=== PATIENT | female | born 1970 | race Caucasian/White ===

== ENCOUNTER → 2016-08-03 | Outpatient (CLI) | payer OTHER ==
--- NOTE | 2016-08-03 10:19 | REPMRS ---
Patient History The patient states she had a clinical breast exam in 07/2016. Patient had first child at age 32. Family history of breast cancer in maternal aunt at age 50 or over and colorectal cancer in maternal uncle at age 50 or over. Benign stereotatic breast biopsy of the right breast, October 21, 2007. Digital Woman Screen Mammo: August 03, 2016 - Exam #: [id number] Bilateral CC and MLO view(s) were taken. Technologist: Steffanie Luis, Technologist Prior study comparison: August 02, 2015, digital woman screen mammo performed at [facility]. July 31, 2014, digital woman screen mammo performed at [facility]. July 31, 2013, digital woman screen mammo performed at [facility]. FINDINGS: There are scattered fibroglandular densities. There has been no change in the appearance of the mammogram from the prior studies. No change in the size or appearance of the well circumscribed mass in the upper outer quadrant of the right breast since of multiple prior mammography. There is a needle biopsy marker clip along the anterior to this mass as before. There is a mild amount of scattered fibroglandular density which is fairly symmetric. There is no interval development of dominant mass, architectural distortion, or clustered microcalcification suggestive of malignancy. ASSESSMENT: BI-RADS/ACR category 2 mammogram. Benign finding(s). Recommendation Routine screening mammogram in 1 year (for women over age 40). This mammogram was interpreted with the aid of an FDA-approved computer-aided dectection system. Electronically Signed By: Edson Jay MD 08/03/16 [id number]
== END ==
LOC: M WHC 09:21
PROVIDERS: ATTEND Nurse Practitioner Family
DX: Z12.31 Encounter for screening mammogram for malignant neoplasm of breast (principal)

== ENCOUNTER → 2016-09-20 | Outpatient (CLI) | payer OTHER ==
[2016-09-20 10:15] LABS: ALBUMIN 3.7 GM/DL (3.2-5.2); ALBUMIN/GLOBULIN RATIO 1.16 (1.00-1.93); ALKALINE PHOSPHATASE 51 U/L (45-117); ALT/SGPT 27 U/L (12-78); ANION GAP 9 MEQ/L (8-16); AST/SGOT 22 U/L (15-37); BILIRUBIN,TOTAL 0.3 MG/DL (0.2-1.0); BLOOD UREA NITROGEN 11 MG/DL (7-18); CALCIUM LEVEL 8.8 MG/DL (8.5-10.1); CARBON DIOXIDE LEVEL 28 MEQ/L (21-32); CHLORIDE LEVEL 105 MEQ/L (98-107); CHOLESTEROL LEVEL 134 MG/DL (<200); CREATININE FOR GFR 0.91 MG/DL (0.55-1.02); GLOMERULAR FILTRATION RATE > 60.0 (>58); GLUCOSE, FASTING 94 MG/DL (70-105); POTASSIUM SERUM 4.6 MEQ/L (3.5-5.1); SODIUM LEVEL 142 MEQ/L (136-145); TOTAL PROTEIN 6.9 GM/DL (6.4-8.2); TRIGLYCERIDES LEVEL 61 MG/DL (<150)
== END ==
LOC: M WUC 08:30
PROVIDERS: ATTEND Family Medicine
DX: R10.9 Unspecified abdominal pain (principal); Z83.49 Family history of other endocrine, nutritional and metabolic diseases

== ENCOUNTER → 2017-08-06 | Outpatient (CLI) | payer OTHER | LOC: M WHC 09:31 | DX: Z12.31 Encounter for screening mammogram for malignant neoplasm of breast (principal) | CPT/HCPCS: 77067 ==

== ENCOUNTER → 2018-08-07 | Outpatient (CLI) | payer OTHER ==
--- NOTE | 2018-08-07 09:25 | REPMRS ---
Patient History The patient states she had a clinical breast exam in 07/2018. Patient had first child at age 32. Family history of colorectal cancer at age 55 in maternal uncle, breast cancer at age 50 or over in maternal aunt. Benign stereotatic breast biopsy of the right breast, October 21, 2007. Digital Woman Screen Mammo: August 07, 2018 - Exam #: [id number] Bilateral CC and MLO view(s) were taken. Technologist: Steffanie Luis Technologist Prior study comparison: August 06, 2017, digital woman screen mammo performed at [email or web address]. August 03, 2016, digital woman screen mammo performed at [email or web address]. August 02, 2015, digital woman screen mammo performed at [email or web address]. FINDINGS: There are scattered fibroglandular densities. There is a needle biopsy marker clip along the anterior edge of a stable right breast nodule unchanged from multiple comparison studies. There are other smaller stable nodules visualized on the right breast as well. There has been no change in the appearance of the mammogram from the prior studies. There is a mild amount of scattered fibroglandular density which is fairly symmetric. There is no interval development of dominant mass, architectural distortion, or clustered microcalcification suggestive of malignancy. 3-D tomosynthesis shows no additional findings. Assessment: BI-RADS/ACR category 2 mammogram. Benign Findings. Recommendation Routine screening mammogram of both breasts in 1 year (for women over age 40). This patient's Lifetime Breast Cancer RIsk is estimated at 18.0 %. This mammogram was interpreted with the aid of an FDA-approved computer-aided dectection system. Electronically Signed By: Edson Jay MD 08/07/18 [id number]
== END ==
LOC: M WHC 07:53
PROVIDERS: ATTEND Nurse Practitioner Family
DX: Z12.31 Encounter for screening mammogram for malignant neoplasm of breast (principal)

== ENCOUNTER → 2018-08-07 | Outpatient (REF) | payer OTHER ==
[2018-08-09 14:42] LABS: HPV HYBRID CAPTURE II Negative (Negative)
== END ==
LOC: M SFHCWAGY 08:21
PROVIDERS: ATTEND Nurse Practitioner Family
DX: Z12.4 Encounter for screening for malignant neoplasm of cervix (principal)
CPT/HCPCS: 87624; G0123

== ENCOUNTER → 2018-11-15 | Outpatient (CLI) | payer OTHER ==
[~2018-11-15] MED LIST: E-Z-GAS II EFFERVESCENT PACKET (SODIUM BICARB./CITRIC ACID/SIMETHICONE) As Ordered ONE; E-Z-HD 98% w/w 340GM SUSP BTL As Ordered ONE; E-Z-PAQUE 96% w/w SUSP 176GM BTL As Ordered ONE
--- NOTE | 2018-11-16 14:59 | REP ---
Esophagram The procedure was performed under the direct supervision of Dr. Harp. The images were reviewed with Dr. Harp. A single view PA chest x-ray is submitted as a invoice control clerk film. The superior mediastinal structures are midline. The heart size is within normal limits. The lungs are clear. Liquid barium and gas producing granules were given in the erect position as well as liquid barium in the prone oblique positions in order to perform a double contrast esophagram examination. The oral and pharyngeal stages of deglutition are unremarkable. Esophageal transport is prompt and efficient. In the mid esophagus there is some slight mucosal irregularity which may represent early esophagitis. There is no pamela ulcer identified. At the GE junction there are some barium collections which is consistent with esophageal intramural pseudo diverticulosis. Impression: 1. In the mid esophagus there is some slight mucosal irregularity which may represent early esophagitis. There is no pamela ulcer identified. 2. At the GE junction there are some barium collections which is consistent with esophageal intramural pseudo diverticulosis. 0.9 minutes of fluoro time was utilized for this procedure. Reviewed by ARGENIS Watkins 11/15/2018 04:28 P Electronically Signed by Liban Harp MD 11/16/2018 02:50 P
== END ==
LOC: M RAD 09:43
PROVIDERS: ATTEND Physician Assistant Medical
DX: R13.10 Dysphagia, unspecified (principal)

== ENCOUNTER 2018-12-06 11:41 | Day surgery (SDC) | payer OTHER ==
[~2018-12-06] VITALS: Ht 157.5 cm; Wt 66.2 kg
[~2018-12-06 11:41] MED LIST changes: -E-Z-GAS II EFFERVESCENT PACKET (SODIUM BICARB./CITRIC ACID/SIMETHICONE) As Ordered ONE; -E-Z-HD 98% w/w 340GM SUSP BTL As Ordered ONE; -E-Z-PAQUE 96% w/w SUSP 176GM BTL As Ordered ONE; +EXCETAB33 PO; +FLON1SPR
[2018-12-06] MEDS ORDERED: LIDOCAINE 2% INJ 100 MG/5 ML SDV (FOR ANES.) As Ordered ONE (14:23)
[2018-12-06] MEDS ORDERED: PROPOFOL 200 MG/20 ML VIAL As Ordered ONE ×2 (14:23→14:36)
--- NOTE | 2018-12-06 15:05 | ROOR ---
Patient Name: Samreen Balderas Procedure Date: 12/06/2018 2:04 PM Date of : 1970 Age: 48 Room: [facility] Gender: Female Note Status: Finalized Procedure: Upper GI endoscopy Indications: Dysphagia Providers: Tomasz Pizarro MD Referring MD: Starr Reeves MD Requesting Provider: Medicines: Monitored Anesthesia Care Complications: No immediate complications. Procedure: Pre-Anesthesia Assessment: - Prior to the procedure, a History and Physical was performed, and patient medications and allergies were reviewed. The patient is competent. The risks and benefits of the procedure and the sedation options and risks were discussed with the patient. All questions were answered and informed consent was obtained. Patient identification and proposed procedure were verified by the physician, the nurse and the anesthesiologist in the procedure room. Mental Status Examination: alert and oriented. Airway Examination: normal oropharyngeal airway and neck mobility. Respiratory Examination: clear to auscultation. CV Examination: normal. Prophylactic Antibiotics: The patient does not require prophylactic antibiotics. Prior Anticoagulants: The patient has taken no previous anticoagulant or antiplatelet agents. ASA Grade Assessment: II - A patient with mild systemic disease. After reviewing the risks and benefits, the patient was deemed in satisfactory condition to undergo the procedure. The anesthesia plan was to use monitored anesthesia care (MAC). Immediately prior to administration of medications, the patient was re-assessed for adequacy to receive sedatives. The heart rate, respiratory rate, oxygen saturations, blood pressure, adequacy of pulmonary ventilation, and response to care were monitored throughout the procedure. The physical status of the patient was re-assessed after the procedure. The Endoscope was introduced through the mouth, and advanced to the second part of duodenum. The upper GI endoscopy was accomplished without difficulty. The patient tolerated the procedure well. Findings: Mucosal changes including ringed esophagus, feline appearance, longitudinal furrows, white plaques and stenosis were found in the entire esophagus. Esophageal findings were graded using the Eosinophilic Esophagitis Endoscopic Reference Score (EoE-EREFS) as: Edema Grade 1 Present (decreased clarity or absence of vascular markings), Rings Grade 2 Moderate (distinct rings that do not occlude passage of diagnostic 8-10 mm endoscope), Exudates Grade 1 Mild (scattered white lesions involving less than 10 percent of the esophageal surface area), Furrows Grade 1 Present (vertical lines with or without visible depth) and Stricture present. Biopsies were obtained from the proximal and distal esophagus with cold forceps for histology of suspected eosinophilic esophagitis. Verification of patient identification for the specimen was done by the physician and nurse using the patient's name, date and medical record number. Estimated blood loss was minimal. One benign-appearing, intrinsic severe (stenosis; an endoscope cannot pass) stenosis was found in the distal esophagus. This stenosis measured 8 mm (inner diameter). The stenosis was traversed after dilation. A TTS dilator was passed through the scope. Dilation with a 10-11-12 mm balloon dilator was performed to 12 mm. The dilation site was examined following endoscope reinsertion and showed mild mucosal disruption, moderate improvement in luminal narrowing, no mucosal tear and no perforation. One non-bleeding cratered gastric ulcer with a clean ulcer base (Bishop Class III) was found in the gastric antrum. The lesion was 15 mm in largest dimension. Biopsies were taken with a cold forceps for histology. Diffuse mild inflammation characterized by erythema and granularity was found in the gastric antrum. Biopsies were taken with a cold forceps for Helicobacter pylori testing. The duodenal bulb and second portion of the duodenum were normal. Impression: - Esophageal mucosal changes consistent with eosinophilic esophagitis. Biopsied. - Benign-appearing esophageal stenosis. Dilated. - Non-bleeding gastric ulcer with a clean ulcer base (Bishop Class III). Biopsied. - Gastritis. Biopsied. - Normal duodenal bulb and second portion of the duodenum. Recommendation: - Patient has a contact number available for emergencies. The signs and symptoms of potential delayed complications were discussed with the patient. Return to normal activities tomorrow. Written discharge instructions were provided to the patient. - Mechanical soft diet. - Avoid the six foods - milk, egg, soy, wheat, peanuts/tree nuts, fish/shellfish. for 6 weeks. - Follow an antireflux regimen. - Use Protonix (pantoprazole) 40 mg PO twice daily - to be taken in morning (1/2 hour before breakfast) and at bedtime ( atleast 3 hours after last meal) for 3 months. - Await pathology results. - Repeat upper endoscopy in 3 months to evaluate the response to therapy. - Return to GI office in [facility] (address [address], [place] [address]) in 4 -- 6 weeks. Please call GI clinic @ [phone] for apppointment date and time. - Telephone GI clinic for pathology results in 2 weeks. - Return to primary care physician. Tomasz Pizarro MD Tomasz Pizarro MD 12/06/2018 3:05:10 PM Electronically signed by Tomasz Pizarro MD Number of Addenda: 0 Note Initiated On: 12/06/2018 2:04 PM Estimated Blood Loss: Estimated blood loss was minimal.
--- NOTE | 2018-12-06 15:07 | ROOR ---
Patient Name: Samreen Balderas Procedure Date: 12/06/2018 2:06 PM Date of : 1970 Age: 48 Room: [facility] Gender: Female Note Status: Finalized Procedure: Colonoscopy Indications: Screening for colorectal malignant neoplasm Providers: Tomasz Pizarro MD Referring MD: Starr Reeves MD Requesting Provider: Medicines: Monitored Anesthesia Care Complications: No immediate complications. Procedure: Pre-Anesthesia Assessment: - Prior to the procedure, a History and Physical was performed, and patient medications and allergies were reviewed. The patient is competent. The risks and benefits of the procedure and the sedation options and risks were discussed with the patient. All questions were answered and informed consent was obtained. Patient identification and proposed procedure were verified by the physician, the nurse and the anesthesiologist in the procedure room. Mental Status Examination: alert and oriented. Airway Examination: normal oropharyngeal airway and neck mobility. Respiratory Examination: clear to auscultation. CV Examination: normal. Prophylactic Antibiotics: The patient does not require prophylactic antibiotics. Prior Anticoagulants: The patient has taken no previous anticoagulant or antiplatelet agents. ASA Grade Assessment: II - A patient with mild systemic disease. After reviewing the risks and benefits, the patient was deemed in satisfactory condition to undergo the procedure. The anesthesia plan was to use monitored anesthesia care (MAC). Immediately prior to administration of medications, the patient was re-assessed for adequacy to receive sedatives. The heart rate, respiratory rate, oxygen saturations, blood pressure, adequacy of pulmonary ventilation, and response to care were monitored throughout the procedure. The physical status of the patient was re-assessed after the procedure. The Colonoscope was introduced through the anus and advanced to the terminal ileum, with identification of the appendiceal orifice and IC valve. The colonoscopy was performed without difficulty. The patient tolerated the procedure well. The quality of the bowel preparation was good. The terminal ileum, ileocecal valve, appendiceal orifice, and rectum were photographed. Scope insertion time was 3 minutes. Scope withdrawal time was 9 minutes. The total duration of the procedure was 12 minutes. Findings: The perianal and digital rectal examinations were normal. The terminal ileum appeared normal. Non-bleeding external and internal hemorrhoids were found during retroflexion. The hemorrhoids were small. No other significant abnormalities were identified in a careful examination of the remainder of the colon. Impression: - The examined portion of the ileum was normal. - Non-bleeding external and internal hemorrhoids. - No specimens collected. Recommendation: - Patient has a contact number available for emergencies. The signs and symptoms of potential delayed complications were discussed with the patient. Return to normal activities tomorrow. Written discharge instructions were provided to the patient. - Resume previous diet. - Continue present medications. - Repeat colonoscopy in 10 years for screening purposes. - Return to GI clinic in [facility] (address [address], [address] [address]) in 4 -- 6 weeks. Please call GI clinic @ [phone] for apppointment date and time. - Return to primary care physician. Tomasz Pizarro MD Tomasz Pizarro MD 12/06/2018 3:06:48 PM Electronically signed by Tomasz Pizarro MD Number of Addenda: 0 Note Initiated On: 12/06/2018 2:06 PM Estimated Blood Loss: Estimated blood loss: none.
[2018-12-06 15:23] VITALS: BP 153/72
== END 2018-12-06 15:29 | disposition home or self-care (01) ==
LOC: M OPP 11:41
PROVIDERS: ATTEND Internal Medicine Gastroenterology
DX: K64.8 Other hemorrhoids (principal); R13.10 Dysphagia, unspecified; K21.0 Gastro-esophageal reflux disease with esophagitis; K22.2 Esophageal obstruction; K29.70 Gastritis, unspecified, without bleeding; K25.9 Gastric ulcer, unspecified as acute or chronic, without hemorrhage or perforation; Z12.11 Encounter for screening for malignant neoplasm of colon

== ENCOUNTER 2019-02-21 11:56 | Day surgery (SDC) | payer OTHER ==
[~2019-02-21] VITALS: Ht 157.5 cm; Wt 63.9 kg
[~2019-02-21 11:56] MED LIST changes: +NS 1,000 ML IV ONE; +PROTPAK PO
[2019-02-21] MEDS ORDERED: LIDOCAINE 2% INJ 100 MG/5 ML SDV (FOR ANES.) As Ordered ONE (13:00)
[2019-02-21] MEDS ORDERED: PROPOFOL 200 MG/20 ML VIAL As Ordered ONE ×2 (13:00→14:03)
[2019-02-21] MEDS ORDERED: ONDANSETRON 4MG/2ML VIAL (J2405) As Ordered ONE (14:45)
--- NOTE | 2019-02-21 14:57 | ROOR ---
Patient Name: Samreen Balderas Procedure Date: 02/21/2019 1:45 PM Date of : 1970 Age: 48 Room: [facility] Gender: Female Note Status: Finalized Procedure: Upper GI endoscopy Indications: Dysphagia, Follow-up of gastric ulcer Providers: Tomasz Pizarro MD Referring MD: Starr Reeves MD Requesting Provider: Medicines: Monitored Anesthesia Care Complications: No immediate complications. Procedure: Pre-Anesthesia Assessment: - Prior to the procedure, a History and Physical was performed, and patient medications and allergies were reviewed. The patient is competent. The risks and benefits of the procedure and the sedation options and risks were discussed with the patient. All questions were answered and informed consent was obtained. Patient identification and proposed procedure were verified by the physician, the nurse and the anesthesiologist in the procedure room. Mental Status Examination: alert and oriented. Airway Examination: normal oropharyngeal airway and neck mobility. Respiratory Examination: clear to auscultation. CV Examination: normal. Prophylactic Antibiotics: The patient does not require prophylactic antibiotics. Prior Anticoagulants: The patient has taken no previous anticoagulant or antiplatelet agents. ASA Grade Assessment: II - A patient with mild systemic disease. After reviewing the risks and benefits, the patient was deemed in satisfactory condition to undergo the procedure. The anesthesia plan was to use monitored anesthesia care (MAC). Immediately prior to administration of medications, the patient was re-assessed for adequacy to receive sedatives. The heart rate, respiratory rate, oxygen saturations, blood pressure, adequacy of pulmonary ventilation, and response to care were monitored throughout the procedure. The physical status of the patient was re-assessed after the procedure. The Endoscope was introduced through the mouth, and advanced to the second part of duodenum. The upper GI endoscopy was accomplished without difficulty. The patient tolerated the procedure well. Findings: LA Grade A (one or more mucosal breaks less than 5 mm, not extending between tops of 2 mucosal folds) esophagitis with no bleeding was found in the distal esophagus. Biopsies were taken with a cold forceps for histology. Verification of patient identification for the specimen was done by the physician and nurse using the patient's name, date and medical record number. Estimated blood loss was minimal. Normal mucosa was found in the upper third of the esophagus, in the middle third of the esophagus and in the lower third of the esophagus. Biopsies were obtained from the proximal and distal esophagus with cold forceps for histology of suspected eosinophilic esophagitis. Localized moderate inflammation characterized by congestion (edema), erythema, friability and granularity was found in the gastric antrum. Three biopsies were obtained with cold forceps for histology in the gastric antrum, as well as two biopsies in the gastric body. A moderate extrinsic deformity was found in the duodenal bulb. The second portion of the duodenum was normal. Impression: - LA Grade A reflux esophagitis. Rule out Dowell's esophagus. Biopsied. - Normal mucosa was found in the upper third of the esophagus, in the middle third of the esophagus and in the lower third of the esophagus. Biopsied. - Gastritis. - Duodenal deformity. - Normal second portion of the duodenum. - Biopsies performed in the gastric antrum and in the gastric body. Recommendation: - Patient has a contact number available for emergencies. The signs and symptoms of potential delayed complications were discussed with the patient. Return to normal activities tomorrow. Written discharge instructions were provided to the patient. - Resume previous diet. - Continue present medications. - Await pathology results. - Perform CT scan (computed tomography) of the abdomen with contrast depending on symptoms to evaluate for extrinsic compression on duodenum area. - Telephone GI clinic for pathology results in 2 weeks. - Return to primary care physician. Tomasz Pizarro MD Tomasz Pizarro MD 02/21/2019 2:56:43 PM Electronically signed by Tomasz Pizarro MD Number of Addenda: 0 Note Initiated On: 02/21/2019 1:45 PM Estimated Blood Loss: Estimated blood loss was minimal.
[2019-02-21] MEDS ORDERED: ONDANSETRON 4MG/2ML VIAL (J2405) IV ONE (15:00)
[2019-02-21 15:02] VITALS: BP 142/69
== END 2019-02-21 15:27 | disposition home or self-care (01) ==
LOC: M OPP 11:56
PROVIDERS: ATTEND Internal Medicine Gastroenterology
DX: K25.9 Gastric ulcer, unspecified as acute or chronic, without hemorrhage or perforation (principal); R13.10 Dysphagia, unspecified; K21.0 Gastro-esophageal reflux disease with esophagitis; K31.89 Other diseases of stomach and duodenum; K29.70 Gastritis, unspecified, without bleeding; G43.909 Migraine, unspecified, not intractable, without status migrainosus; Z88.5 Allergy status to narcotic agent; Z79.899 Other long term (current) drug therapy
CPT/HCPCS: 43239; 88305; J2405

== ENCOUNTER → 2019-04-11 | Outpatient (CLI) | payer OTHER ==
[~2019-04-11] MED LIST changes: -NS 1,000 ML IV ONE
--- NOTE | 2019-04-11 11:51 | REP ---
Complete abdominal ultrasound for gastric ulcer with extrinsic pressure on the duodenum. Comparison is the abdomen/pelvis CT dated 10/31/2011. There is no cholelithiasis, gallbladder wall thickening or pericholecystic fluid. There is no intrahepatic or extrahepatic biliary duct dilatation. The common biliary duct measures 2.9 mm in diameter. The hepatic parenchyma is homogeneous. The liver is normal size measuring 15.0 cm craniocaudad in the midclavicular line. The visualized areas of the pancreas are unremarkable. No pancreatic head mass is identified by ultrasound. The spleen is normal size measuring 9.9 x 9.6 x 3.8 cm. There is a splenic cyst measuring 2.5 x 1.8 x 2.1 cm. This was not present on the comparison CT. The kidneys are normal size. Right kidney measures 10.1 x 4 point and a 3.9 cm. The left kidney measures 10.1 x 4.6 x 4.6 cm. There are no solid or cystic renal masses masses. There are no renal calculi. The There is no right renal hydronephrosis. There appear to be dilated calyces in the left renal upper pole. This was not present on the comparison CT and is of uncertain significance. This may represent parapelvic renal cysts. CT might be considered for further evaluation. There is no abdominal aortic aneurysm. The proximal aorta measures 2.0 cm diameter. The mid aorta measures 1.6 cm diameter. The distal aorta measures 1.2 cm diameter per There is no abdominal ascites. Impression: No pancreatic head mass is identified by ultrasound. There is a 2.5 cm splenic cyst. There appear to be dilated calyces in the left renal upper pole. This is of uncertain significance but is a change from the comparison CT. This may represent parapelvic renal cysts. Follow-up CT might be considered. Electronically Signed by Liban Toledo MD 04/11/2019 11:42 A
== END ==
LOC: M RAD 07:39
PROVIDERS: ATTEND Internal Medicine Gastroenterology
DX: K25.9 Gastric ulcer, unspecified as acute or chronic, without hemorrhage or perforation (principal); R13.10 Dysphagia, unspecified

== ENCOUNTER → 2019-04-25 | Outpatient (REF) | payer OTHER ==
[2019-04-25 12:02] LABS: BASO # 0.1 10^3/uL (0.0-0.2); BASO % 1.5 % (0.0-1.0); EOS # 0.2 10^3/uL (0.0-0.5); EOS % 4.2 % (0.0-3.0); HEMATOCRIT 43.8 % (36.0-47.0); LYMPH # 1.1 10^3/uL (1.5-5.0); LYMPH % 24.1 % (24.0-44.0); MEAN CORPUSCULAR HEMOGLOBIN 32.8 pg (27.0-33.0); MEAN CORPUSCULAR HGB CONC 34.2 g/dl (32.0-36.5); MEAN CORPUSCULAR VOLUME 95.8 fl (80.0-96.0); MONO # 0.4 10^3/uL (0.0-0.8); MONO % 7.7 % (0.0-5.0); NEUTROPHILS # 2.8 10^3/uL (1.5-8.5); NEUTROPHILS % 61.6 % (36.0-66.0); PLATELET COUNT, AUTOMATED 309 10^3/uL (150-450); RED BLOOD COUNT 4.57 10^6/uL (4.00-5.40); WHITE BLOOD COUNT 4.6 10^3/uL (4.0-10.0)
[2019-04-25 12:35] LABS: ALBUMIN 3.6 GM/DL (3.2-5.2); ALT/SGPT 32 U/L (12-78); BILIRUBIN,TOTAL 0.3 MG/DL (0.2-1.0); BLOOD UREA NITROGEN 11 MG/DL (7-18); CALCIUM LEVEL 9.5 MG/DL (8.5-10.1); CARBON DIOXIDE LEVEL 28 MEQ/L (21-32); CHLORIDE LEVEL 106 MEQ/L (98-107); CREATININE FOR GFR 0.95 MG/DL (0.55-1.30); GLOMERULAR FILTRATION RATE > 60.0 (>51); GLUCOSE, FASTING 104 MG/DL (70-100); POTASSIUM SERUM 4.4 MEQ/L (3.5-5.1); SODIUM LEVEL 140 MEQ/L (136-145); TOTAL PROTEIN 7.2 GM/DL (6.4-8.2)
== END ==
LOC: M SFHCPLAZ 10:49
PROVIDERS: ATTEND Family Medicine
DX: D73.4 Cyst of spleen (principal); N28.89 Other specified disorders of kidney and ureter

== ENCOUNTER → 2019-05-01 | Outpatient (CLI) | payer OTHER ==
[~2019-05-01] MED LIST changes: +GASTROGRAFIN SOLUTION 30ML (Q9963) As Ordered ONE; +ISOVUE-370 76% 100ML VIAL (Q9967) As Ordered ONE
--- NOTE | 2019-05-02 06:31 | REP ---
Clinical: Splenic cyst. Technique: Axial contrast enhanced images from the lung bases to the pubic symphysis using oral (per protocol) and 100 ml Isovue 370 intravenous contrast material with precontrast and delayed images of the abdomen as well as coronal and sagittal re-formations. Comparison: 10/31/2011. Findings: Benign appearing low density lesion within the spleen measures 2.5 cm maximal diameter and is consistent with cyst. Bilateral subcentimeter renal cysts and multiple prominent left peripelvic renal cysts measuring up to approximately 2 cm noted. Liver, pancreas, gallbladder, and bilateral adrenal glands are normal. There is no evidence for bowel obstruction. There is a midline ventral hernia at the level of the lower pelvis containing multiple nonobstructed loops of small bowel and measuring approximately 6.5 x 3.0 cm. Pelvis demonstrates normal bladder and age-appropriate uterus/adnexa. No significant ascites. No free air. No adenopathy. Abdominal aorta and vasculature appears normal. Osseous structures are intact. Lung bases are clear. Impression: 1. Benign simple appearing splenic and bilateral renal cysts (left greater than right). 2. Midline ventral hernia at the level of the lower pelvis containing nonobstructed loops of small bowel. Electronically Signed by Deni Miller MD 05/02/2019 06:22 A
== END ==
LOC: M RAD 15:29
PROVIDERS: ATTEND Family Medicine
DX: D73.4 Cyst of spleen (principal); N28.1 Cyst of kidney, acquired; K43.9 Ventral hernia without obstruction or gangrene
CPT/HCPCS: 74178; Q9963; Q9967

== ENCOUNTER → 2019-07-18 | Outpatient (CLI) | payer OTHER ==
[~2019-07-18] MED LIST changes: -GASTROGRAFIN SOLUTION 30ML (Q9963) As Ordered ONE; -ISOVUE-370 76% 100ML VIAL (Q9967) As Ordered ONE; +NO ITAB PO
--- NOTE | 2019-07-18 08:40 | ECGEPIP ---
[facility] Test Date: 2019-07-18 Pat Name: VAL UMANA Department: Room: - Gender: Female Manager Health: HEMA : 1970 Requested By: Other CDS - complete info on Order Number: [id number] Reading MD: Dominik Blair Measurements Intervals [place] Rate: 77 P: 74 WA: 154 QRS: 59 QRSD: 72 T: 24 QT: 340 QTc: 386 Interpretive Statements Normal sinus rhythm Nonspecific ST-T wave abnormalities Comparison tracing not on file Electronically Signed on 07-18-2019 8:40:02 EST by Dominik Blair
== END ==
LOC: M EKG 08:14
PROVIDERS: ATTEND Surgery
DX: Z01.818 Encounter for other preprocedural examination (principal)

== ENCOUNTER 2019-07-22 07:04 | Day surgery (SDC) | payer OTHER ==
[~2019-07-22] VITALS: Ht 157.5 cm; Wt 61.7 kg
[~2019-07-22 07:04] MED LIST changes: +KETOROLAC 60 MG/2 ML VIAL (J1885) As Ordered ONE; +LIDOCAINE 2% INJ 100 MG/5 ML SDV (FOR ANES.) As Ordered ONE; +LR 1,000 ML IV ONE; +MIDAZOLAM INJ 2 MG/2 ML VIAL (J2250) As Ordered ONE; +ONDANSETRON 4MG/2ML VIAL (J2405) As Ordered ONE; +ROCURONIUM BROMIDE 50 MG/5 ML VIAL As Ordered ONE; +dexameTHASONE 4 MG/ML 1ML VIAL (J1100) As Ordered ONE; +fentaNYL 250 MCG/5 ML INJECTION (J3010) As Ordered ONE; +propofoL 200 MG/20 ML VIAL As Ordered ONE
[2019-07-22] MEDS ORDERED: ACET-897 PO (07:38)
[2019-07-22] MEDS ORDERED: ceFAZolin SOD 1 GM in D5W MINI-BAG PLUS 50 ML IV ONE ×2 (08:00→11:00)
[2019-07-22] MEDS ORDERED: SCOPOLAMINE 1MG TRANSDERMAL PATCH As Ordered ONE (08:04)
[2019-07-22] MEDS ORDERED: SCOPOLAMINE 1MG TRANSDERMAL PATCH TOP SCH (08:06)
[2019-07-22] MEDS ORDERED: BUPIVACAINE LIPOSOME/PF 1.3% 20ML VIAL (13.3MG/ML)(EXPAREL)(C9290 PER1MG) As Ordered ONE (08:16)
[2019-07-22] MEDS ORDERED: BUPIVACAINE/EPIN 0.25% 30 ML VIAL As Ordered ONE (08:16)
[2019-07-22] MEDS ORDERED: BUPIVACAINE HCL 0.25% 10 ML VIAL As Ordered ONE (08:16)
[2019-07-22] MEDS ORDERED: SCOPOLAMINE 1MG TRANSDERMAL PATCH TOP ONE (08:30)
[2019-07-22] MEDS ORDERED: ePHEDrine SULFATE 25 MG/5 ML(5MG/ML) SYRINGE As Ordered ONE (09:29)
[2019-07-22] MEDS ORDERED: SUGAMMADEX SODIUM 500 MG/5 ML VIAL (BRIDION) As Ordered ONE (10:27)
[2019-07-22] MEDS ORDERED: KETOROLAC 30 MG/ML VIAL (J1885) IV PRN (11:00)
[2019-07-22] MEDS ORDERED: METOCLOPRAMIDE INJ 10MG/2ML VIAL (J2765) IV PRN (11:00)
[2019-07-22] MEDS ORDERED: oxyCODONE 5MG TAB PO PRN (11:00)
[2019-07-22] MEDS ORDERED: fentaNYL 100 MCG/2 ML INJECTION (J3010) IV PRN (11:00)
[2019-07-22] MEDS ORDERED: ONDANSETRON 4MG/2ML VIAL (J2405) IV PRN (11:00)
[2019-07-22] MEDS ORDERED: LR 1,000 ML IV SCH (11:00)
[2019-07-22] MEDS ORDERED: MEPERIDINE INJ 25 MG/ML VIAL (J2175) IV PRN (11:15)
[2019-07-22] MEDS ORDERED: NS 1,000 ML IV SCH (11:15)
[2019-07-22] MEDS ORDERED: oxyCODONE 5MG TAB As Ordered ONE (11:28)
[2019-07-22 14:40] VITALS: BP 130/65
[2019-07-22] MEDS ORDERED: KETOROLAC 30 MG/ML VIAL (J1885) IV SCH (17:00)
--- NOTE | 2019-08-11 07:55 | RO ---
DATE OF OPERATION: 07/22/2019 PREOPERATIVE DIAGNOSIS: Incisional hernia. POSTOPERATIVE DIAGNOSIS: Incisional hernia. PROCEDURE: Robotic-assisted laparoscopic incisional hernia repair with ProGrip mesh. SURGEON: Timmy Jesus Jr., MD RADIOACTIVE WASTE DISPOSAL DISPATCHER: ANESTHESIA: General endotracheal anesthesia. ESTIMATED BLOOD LOSS: 50 mL. FLUIDS: Crystalloid. BRIEF PROCEDURE SUMMARY: The patient was brought to the operating room and was given general anesthesia. After adequate anesthesia and preoperative antibiotics were given, the patient was prepped and draped in the usual sterile fashion. Next, a supraumbilical incision was made with skin knife. Blunt dissection was carried down to fascia. Veress needle placed into the abdominal cavity and insufflated to 15 mm of pressure. A dilating 8 mm trocar was placed, and under direct visualization two lateral 8 mm trocars were placed. The patient was placed in Trendelenburg position and the robot was docked and targeted and the area was a suprapubic fascial defect that was easily visualized with the scope. I was able to rinse reduce this externally revealing no bowel. Next, an incision along the suprapubic fat pad extending onto the median umbilical ligaments bilaterally was performed with sharp and blunt dissection, and eventually electrocautery was used to create a nice plane behind the rectus muscle. Because of a previous Pfannenstiel incision, there was some very dense adhesions that were eventually able to be taken down rather well. There was some oozing on the left rectus muscle, but this was controlled nicely with electrocautery and once I was able to make some nice planes bilaterally and dissect down the hernia sac itself, the preperitoneal fat that was going through the hernia sac was mobilized out of the hernia sac and cleared off the rectus muscle and then continued dissection inferior towards the pubis itself. Eventually, after all the preperitoneal fat was removed from this area, I felt that this could be brought together with a #0 STRATAFIX. This was brought together with a running #0 STRATAFIX nicely, and then the ProGrip the mesh was cut the appropriate size and placed in the preperitoneal space. The ProGrip mesh reached almost to the pubis itself, did not go behind it per se, and was several centimeters below the edge of the repair and more than 5 cm above the more proximal portion of the repair. Next, Exparel was placed throughout the preperitoneal space and along the rectus muscle in this area and the peritoneum was closed with a running #3-0 V-Loc suture. The trocars were removed under direct visualization, #4-0 Vicryl was used close all of the skin incisions. Steri-Strips and a dry sterile dressing was applied. The patient was awakened from her anesthesia, brought to the recovery room awake, alert and hemodynamically stable. Sponge and needle counts were correct times two.
== END 2019-07-22 14:44 | disposition home or self-care (01) ==
LOC: M SDC 07:04
PROVIDERS: ATTEND Surgery
DX: K43.2 Incisional hernia without obstruction or gangrene (principal); K21.9 Gastro-esophageal reflux disease without esophagitis; G43.909 Migraine, unspecified, not intractable, without status migrainosus; R13.10 Dysphagia, unspecified; Z79.899 Other long term (current) drug therapy
CPT/HCPCS: 49654; C1781; C9290; J0690; J1100; J1885; J2250; J2405; J3010

== ENCOUNTER → 2019-09-10 | Outpatient (CLI) | payer OTHER ==
[~2019-09-10] MED LIST changes: +ACET-897 PO; -KETOROLAC 60 MG/2 ML VIAL (J1885) As Ordered ONE; -LIDOCAINE 2% INJ 100 MG/5 ML SDV (FOR ANES.) As Ordered ONE; -LR 1,000 ML IV ONE; -MIDAZOLAM INJ 2 MG/2 ML VIAL (J2250) As Ordered ONE; -ONDANSETRON 4MG/2ML VIAL (J2405) As Ordered ONE; -ROCURONIUM BROMIDE 50 MG/5 ML VIAL As Ordered ONE; -dexameTHASONE 4 MG/ML 1ML VIAL (J1100) As Ordered ONE; -fentaNYL 250 MCG/5 ML INJECTION (J3010) As Ordered ONE; -propofoL 200 MG/20 ML VIAL As Ordered ONE
--- NOTE | 2019-09-10 10:22 | REPMRS ---
Patient History The patient states she had a clinical breast exam in August 2019. Family history of colorectal cancer at age 55 in maternal uncle, breast cancer at age 50 or over in maternal aunt. Benign stereotatic breast biopsy of the right breast, October 21, 2007. Digital Woman Screen Mammo: September 10, 2019 - Exam #: [id number] Bilateral CC and MLO view(s) were taken. Technologist: Kavya Petty, Technologist Prior study comparison: August 07, 2018, bilateral digital woman screen mammo performed at [facility]. August 06, 2017, digital woman screen mammo performed at [facility]. August 03, 2016, digital woman screen mammo performed at [facility]. FINDINGS: There are scattered fibroglandular densities. There is a stable nodular opacity in the upper outer quadrant of the right breast with a needle biopsy marker clip along its anterior edge again noted. There has been no change in the appearance of the mammogram from the prior studies. There is a mild amount of scattered fibroglandular density which is fairly symmetric. There is no interval development of dominant mass, architectural distortion, or grouped microcalcification suggestive of malignancy. 3-D tomosynthesis shows no additional findings. Assessment: BI-RADS/ACR category 2 mammogram. Benign Findings. Recommendation Routine screening mammogram of both breasts in 1 year (for women over age 40). This patient's Lifetime Breast Cancer Risk is estimated at 17.7 %. This mammogram was interpreted with the aid of an FDA-approved computer-aided dectection system. Electronically Signed By: Edson Jay MD 09/10/19 1522
== END ==
LOC: M WHC 08:11
PROVIDERS: ATTEND Nurse Practitioner Family
DX: Z12.31 Encounter for screening mammogram for malignant neoplasm of breast (principal); Z86.018 Personal history of other benign neoplasm

== ENCOUNTER → 2020-09-13 | Outpatient (CLI) | payer OTHER ==
[2020-09-13 11:39] LABS: CHOLESTEROL RISK RATIO 3.244 (<5)
== END ==
LOC: M WUC 08:17
PROVIDERS: ATTEND Family Medicine
DX: Z13.220 Encounter for screening for lipoid disorders (principal); Z13.1 Encounter for screening for diabetes mellitus

== ENCOUNTER → 2020-09-14 | Outpatient (CLI) | payer OTHER ==
--- NOTE | 2020-09-14 10:10 | REPMRS ---
Patient History The patient states she had a clinical breast exam in September 2020. Family history of colorectal cancer at age 55 in maternal uncle, breast cancer at age 50 or over in maternal aunt. Benign stereotatic breast biopsy of the right breast, October 21, 2007. 3D TOMOSYNTHESIS WAS PERFORMED. [facility] for [facility] cancer [facility] 17.3%. Volpara breast density b. Digital Woman Screen Mammo: September 14, 2020 - Exam #: [id number] Bilateral CC and MLO view(s) were taken. Technologist: Gisela Moser, Technologist Prior study comparison: September 10, 2019, bilateral digital woman screen mammo performed at [facility]. August 07, 2018, bilateral digital woman screen mammo performed at [facility]. FINDINGS: There are scattered fibroglandular densities. There is a fairly symmetric fibroglandular pattern in both breasts. There has been no interval development of masses, areas of architectural distortion or clusters of microcalcifications typical of malignancy. The nodule in the lateral right breast with associated biopsy clip is stable. No significant changes when compared with prior studies. Assessment: BI-RADS/ACR category 2 mammogram. Benign Findings. Recommendation Routine screening mammogram of both breasts in 1 year (for women over age 40). This mammogram was interpreted with the aid of an FDA-approved computer-aided dectection system. Electronically Signed By: Liban Harp MD 09/14/20 9784
== END ==
LOC: M WHC 08:14
PROVIDERS: ATTEND Nurse Practitioner Family
DX: Z12.31 Encounter for screening mammogram for malignant neoplasm of breast (principal)

== ENCOUNTER → 2022-10-02 | Outpatient (CLI) | payer OTHER ==
[~2022-10-02] MED LIST changes: +EXCETAB32 PO; -EXCETAB33 PO
[2022-10-02 10:08] LABS: BASO # 0.1 10^3/uL (0.0-0.2); BASO % 1.4 % (0.0-1.0); EOS # 0.3 10^3/uL (0.0-0.5); EOS % 7.4 % (0.0-3.0); HEMATOCRIT 43.5 % (36.0-47.0); HEMOGLOBIN 14.5 g/dl (12.0-15.5); LYMPH # 1.4 10^3/uL (1.5-5.0); LYMPH % 33.1 % (24.0-44.0); MEAN CORPUSCULAR HEMOGLOBIN 31.8 pg (27.0-33.0); MEAN CORPUSCULAR HGB CONC 33.3 g/dl (32.0-36.5); MEAN CORPUSCULAR VOLUME 95.4 fl (80.0-96.0); MONO # 0.4 10^3/uL (0.0-0.8); MONO % 8.6 % (2.0-8.0); NEUTROPHILS # 2.1 10^3/uL (1.5-8.5); PLATELET COUNT, AUTOMATED 315 10^3/uL (150-450); RED BLOOD COUNT 4.56 10^6/uL (4.00-5.40); WHITE BLOOD COUNT 4.2 10^3/uL (4.0-10.0)
[2022-10-02 10:50] LABS: ALBUMIN 3.6 G/DL (3.2-5.2); ALKALINE PHOSPHATASE 49 U/L (46-116); ALT/SGPT 21 U/L (7.0-40); AST/SGOT 21 U/L (<34); BILIRUBIN,TOTAL 0.6 MG/DL (0.3-1.2); BLOOD UREA NITROGEN 12 MG/DL (9-23); CALCIUM LEVEL 8.5 MG/DL (8.5-10.1); CARBON DIOXIDE LEVEL 27 MMOL/L (20-31); CHLORIDE LEVEL 107 MMOL/L (98-107); CHOLESTEROL LEVEL 123 MG/DL (<200); CHOLESTEROL RISK RATIO 2.74 (<5); CREATININE FOR GFR 0.86 MG/DL (0.55-1.30); GLOMERULAR FILTRATION RATE > 60.0 (>51); GLUCOSE, FASTING 84 MG/DL (60-100); HDL CHOLESTEROL 44.8 MG/DL (>40); NON-HDL-C 78.2 MG/DL; POTASSIUM SERUM 4.1 MMOL/L (3.5-5.1); SODIUM LEVEL 138 MMOL/L (136-145); THYROID STIMULATING HORMONE 1.771 uIU/ML (0.55-4.78); TOTAL PROTEIN 6.4 G/DL (5.7-8.2); TRIGLYCERIDES LEVEL 41 MG/DL (<150)
== END ==
LOC: M WUC 08:07
PROVIDERS: ATTEND Physician Assistant
DX: G43.009 Migraine without aura, not intractable, without status migrainosus (principal); Z13.220 Encounter for screening for lipoid disorders; Z13.29 Encounter for screening for other suspected endocrine disorder

== ENCOUNTER → 2022-11-08 | Outpatient (CLI) | payer OTHER | LOC: M WHC 07:48 | PROVIDERS: ATTEND Nurse Practitioner Family | DX: Z12.31 Encounter for screening mammogram for malignant neoplasm of breast (principal); N63.21 Unspecified lump in the left breast, upper outer quadrant ==

== ENCOUNTER → 2022-11-30 | Outpatient (REF) | payer OTHER | LOC: M SFHCWAGY 10:39 | PROVIDERS: ATTEND Nurse Practitioner Family | DX: Z12.4 Encounter for screening for malignant neoplasm of cervix (principal); R87.615 Unsatisfactory cytologic smear of cervix ==

== ENCOUNTER → 2022-11-30 | Outpatient (CLI) | payer OTHER | LOC: M WHC 07:40 | PROVIDERS: ATTEND Nurse Practitioner Family | DX: R92.8 Other abnormal and inconclusive findings on diagnostic imaging of breast (principal) ==

== ENCOUNTER 2024-04-09 05:55 | Day surgery (SDC) | payer OTHER ==
[~2024-04-09] VITALS: Ht 157.5 cm; Wt 68.0 kg
[~2024-04-09 05:55] MED LIST changes: +PANT20TA6 PO
[2024-04-09] MEDS ORDERED: ONDANSETRON 4MG 2ML VIAL As Ordered ONE (06:56)
[2024-04-09] MEDS ORDERED: LIDOCAINE 2% 100MG/5ML SDV (FOR ANES.) As Ordered ONE (06:56)
[2024-04-09] MEDS ORDERED: MIDAZOLAM INJ 2MG/2ML VIAL As Ordered ONE (06:56)
[2024-04-09] MEDS ORDERED: propofoL 200 MG/20 ML VIAL As Ordered ONE (06:56)
[2024-04-09] MEDS ORDERED: fentaNYL 100 MCG/2 ML INJECTION As Ordered ONE (06:57)
[2024-04-09] MEDS ORDERED: ACETAMINOPHEN 1000MG 100ML IV BAG As Ordered ONE (06:58)
[2024-04-09] MEDS ORDERED: KETOROLAC 60MG 2ML VIAL As Ordered ONE (06:58)
[2024-04-09] MEDS: LR 1,000 ML IV SCH (07:01)
[2024-04-09] MEDS: ceFAZolin SOD 2 GM in IV 1 EA IV ONE (07:35)
[2024-04-09] MEDS: LIDOCAINE 1% SDV 30ML VIAL As Ordered ONE (07:44)
[2024-04-09 08:20] VITALS: BP 150/80
[2024-04-09 08:56] VITALS: TEMP 98.2; O2SAT 97
== END 2024-04-09 09:44 | disposition home or self-care (01) ==
LOC: M SDC 05:55
PROVIDERS: ATTEND Podiatrist Foot & Ankle Surgery
DX: M20.5X1 Other deformities of toe(s) (acquired), right foot (principal); K21.9 Gastro-esophageal reflux disease without esophagitis; Z79.899 Other long term (current) drug therapy; Z88.5 Allergy status to narcotic agent
CPT/HCPCS: 28288; J0131; J0665; J0690; J1100; J1885; J2250; J2405; J3010